=== PATIENT | male | born 1990 | race Caucasian/White ===

== ENCOUNTER 2023-11-08 17:18 | Emergency (ER) | payer SELFPAY ==
[~2023-11-08] VITALS: Ht 177.8 cm; Wt 82.0 kg
[2023-11-08 17:42] VITALS: BP 131/93; PULSE 82; RESP 16; TEMP 97.9; O2SAT 99
== END 2023-11-08 18:21 | disposition left against medical advice (07) ==
LOC: ER 17:18
DX: F10.129 Alcohol abuse with intoxication, unspecified (principal); R07.9 Chest pain, unspecified; Y90.9 Presence of alcohol in blood, level not specified
CPT/HCPCS: 93005; 99283